=== PATIENT | female | born 1970 | race Caucasian/White ===

== ENCOUNTER 2016-06-22 11:53 | Emergency (ER) | payer OTHER | END 2016-06-22 12:23 | disposition left against medical advice (07) | LOC: UCEAST 11:53 | DX: H57.8 Other specified disorders of eye and adnexa (principal) ==

== ENCOUNTER 2016-11-28 18:27 | Emergency (ER) | payer OTHER | END 2016-11-28 22:06 | disposition left against medical advice (07) | LOC: UCEAST 18:27 | DX: R05 Cough (principal); Z53.21 Procedure and treatment not carried out due to patient leaving prior to being seen by health care provider ==

== ENCOUNTER 2018-03-13 06:28 | Emergency (ER) | payer OTHER ==
--- NOTE | 2018-03-13 06:39 | ED ---
Abdominal Pain/Female - HPI Summary HPI Summary: Pt. is a 47 y.o female who presents to the ER for left flank pain that started this a.m. Denies past medical hx. Pt. is constant and sharp in nature. Denies associated sxs of fever, vomiting, dysuria, hematuria, vaginal discharge or bleeding. 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 Pt. Symptoms are moderate in severity. No current modifying factors. - History of Current Complaint Chief Complaint: EDFlankPain Stated Complaint: FLANK PAIN Time Seen by Provider: 03/13/18 06:37 Hx Obtained From: Patient Hx Last Menstrual Period: 07/18/14 Pain Intensity: 5 Allergies/Adverse Reactions: Allergies Allergy/AdvReac Type Severity Reaction Status Date / Time No Known Allergies Allergy Verified 03/13/18 06:56 Home Medications: Home Medications Citalopram Hydrobromide [Citalopram HBr] 10 mg PO DAILY 03/13/18 [History Confirmed 03/13/18] PMH/Surg Hx/FS Hx/Imm Hx Previously Healthy: Yes Endocrine/Hematology History: Denies: Hx Diabetes - [facility] Cardiovascular History: Denies: Hx Hypertension, Hx Pacemaker/ICD GI History: Reports: Other GI Disorders - Possible acid reflux History: Denies: Hx Renal Disease Sensory History: Denies: Hx Hearing Aid Psychiatric History: Denies: Hx Panic Disorder - Cancer History Hx Chemotherapy: No Hx Radiation Therapy: No - Surgical History Surgery Procedure, Year, and Place: 2006 [facility] [place]; Infectious Disease History: No Infectious Disease History: Denies: Traveled Outside the [place] in Last 30 Days - Family History Known Family History: Positive: Non-Contributory - Social History Occupation: Employed Full-time Lives: With Family Alcohol Use: None Substance Use Type: Reports: None Smoking Status (MU): Former Smoker Review of Systems Constitutional: Negative Negative: Fever, Chills Cardiovascular: Negative Respiratory: Negative Positive: Abdominal Pain. Negative: Vomiting, Diarrhea, Nausea Positive: flank pain. Negative: burning, dysuria, discharge, frequency, hematuria Neurological: Negative All Other Systems Reviewed And Are Negative: Yes Physical Exam Triage Information Reviewed: Yes Vital Signs On Initial Exam: Initial Vitals Temp Pulse Resp BP Pulse Ox 99.3 F 73 22 132/69 100 03/13/18 06:30 03/13/18 06:30 03/13/18 06:30 03/13/18 06:30 03/13/18 06:30 Vital Signs Reviewed: Yes Appearance: Positive: Pain Distress - Pt. lying in bed onto her left side appears in pain but nontoxic. Skin: Positive: Warm, Dry Head/Face: Positive: Normal Head/Face Inspection Eyes: Positive: Normal, EOMI Neck: Positive: Supple Abdomen Description: Positive: Other: - Obese. Abd. is soft with pain to left lower and upper quadrants with guarding. No rigidity or rebound tenderness. Musculoskeletal: Positive: Normal, Strength/ROM Intact Neurological: Positive: Normal, Alert, Oriented to Person Place, Time Psychiatric: Positive: Affect/Mood Appropriate Diagnostics - Vital Signs Vital Signs Temp Pulse Resp BP Pulse Ox 03/13/18 06:30 99.3 F 73 22 132/69 100 - Laboratory Result Diagrams: 03/13/18 07:16 03/13/18 07:16 Lab Statement: Any lab studies that have been ordered have been reviewed, and results considered in the medical decision making process. Abdominal Pain Fem Course/Dx - Course Course Of Treatment: Pt. presenting for acute onset of left-sided flank pain. She is afebrile with stable vital signs. Suspect urolithiasis, diverticulitis. Patient started on IV fluids, Toradol, morphine and Zofran. We will obtain blood work and CT scan. CBC shows a mild leukocytosis of 12.2. H&H today are low at 7.8 and 26. H&H about a year ago was 10.2 and 33. CMP is unremarkable. Urinalysis shows RBCs without signs of infection. IMPRESSION: 1. CT findings are consistent with mild left-sided hydronephrosis without identification. of a renal calculus. This appearance could be compatible with recent passage of a kidney. stone. 2. Distal colonic diverticulosis without definite focal inflammatory changes. characteristic of acute diverticulitis. 3. At the left adnexa there is a 2.8 cm hypoattenuating structure that is most likely a. dominant follicle if this woman is still undergoing menstrual cycles. If the patient is. experiencing gynecologic symptoms, superior characterization could be made with. ultrasound. CT read per radiology: IMPRESSION: 1. CT findings are consistent with mild left-sided hydronephrosis without identification. of a renal calculus. This appearance could be compatible with recent passage of a kidney. stone. 2. Distal colonic diverticulosis without definite focal inflammatory changes. characteristic of acute diverticulitis. 3. At the left adnexa there is a 2.8 cm hypoattenuating structure that is most likely a. dominant follicle if this woman is still undergoing menstrual cycles. If the patient is. experiencing gynecologic symptoms, superior characterization could be made with. ultrasound. Reexamination patient's pain has greatly improved. Suspect results with patient. Suspect she passed a stone based discussed hemoglobin and hematocrit with patient. She states that she was told her H and H was low last year and was suppose to have additional testing but states she never followed up. Pt. denies sxs of CP, SOB, lightheadness, dizziness. Based on CBC suspect microcytic anemia likely iron deficiency. Case was discussed with Dr. Trotter who does not recommend transfusion given patient is asymptomatic. She recommended started patient on iron supplement and stool softener. Advised patient she will need to call her family doctor Thursday for close follow-up appointment for further evaluation and repeat blood work. Rx for iron and and a few days of pain medication was given. EARLY CHILDHOOD TEACHER ASSISTANT was reviewed and no red flags noted. Advised patient to increase fluids. Incidental findings on CT scan were discussed. Advised to return to the ER for increased pain, fever, vomiting , lightheadedness, dizziness, chest pain, shortness of breath. Patient understands and agrees with plan. - Diagnoses Differential Diagnosis: Positive: Appendicitis, Bowel Obstruction, Constipation , Diverticulitis, Ectopic , Pancreatitis, Renal Colic, Urinary Tract Infection Provider Diagnoses: Anemia, Hydronephrosis Discharge - Sign-Out/Discharge Documenting (check all that apply): Patient Departure - Discharge Plan Condition: Improved Disposition: HOME Prescriptions: Ferrous Sulfate TAB* 325 mg PO DAILY #30 tab Hydrocodone/Acetaminophen [Hydrocodone-Acetamin 5-325 mg] 1 each PO Q6H #8 tablet MDD 4 tablets Patient Education Materials: Kidney Stones (ED), Iron Rich Diet (ED), Anemia ( ED) Referrals: Edilberto Yang MD [Primary Care Provider] - Additional Instructions: Call PCP on Thursday to schedule a close follow up appointment for repeat blood work Take iron supplement as directed Recommend taking an over the counter stool softener such as Colace Increase fluids Return to ER for chest pain, shortness of breath, lightheadness, dizziness, increased pain, fever, or if concerned - Billing Disposition and Condition Condition: IMPROVED Disposition: Home
--- OUTSIDE RECORDS SUMMARY | 2018-03-13 06:39 | XMS REPORT ---
:1970 External Reference #:[id number] Author Organization [facility] Address [address] [place] [address] Phone [phone] Care Team Providers Name Role Phone Edilberto Yang MD Care Team Information Chocolate Refining Roller Unavailable Edilberto Yang MD Primary Care Physician Unavailable Payers Type Date Identification Numbers Payment Provider Subscriber Health Maintenance Policy Number: [employer] Leah Fine Organization (HMO) [id number] Group Number: [id number] [id number] PayID: [id number] [place] [address] Problems Date Description Provider Status Onset: 07/10/2016 Iron deficiency anemia Edilberto Yang M.D. Active Onset: 09/04/2014 Cough Edilberto Yang M.D. Active Onset: 11/12/2011 Depressive disorder Edilberto Yang M.D. 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 [employer] Cigarette Use Nonsmoker ETOH Use Rare Smoking Patient has never smoked Daily Caffeine Does not consume caffeine Allergies, Adverse Reactions, Alerts Date Description Reaction Status Severity Comments 02/27/2010 NKDA active Medications Medication Date Status Form Strength Qnty SIG Indications Ordering Provider Citalopram Active Tablets 10mg 90tabs 1 by F34.1 Lora Hydrobromide 012 mouth 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 015 - every day Lisandro Yang [address] 20mg 30caps 1 po qd 786.50 Ofe 013 - Christelle, Afnp-C 014 Citalopram Hx Tablets 10mg 30tabs 1 po qd Ofe Hydrobromide 011 - Christelle, Afnp-C 012 Immunizations CPT Code Status Date Vaccine Lot # [id number] Given 03/14/2016 Influenza Vac, Quadrivalent, Slit Virus, Im [id number] Given 03/14/2015 Influenza Vac, Quadrivalent, Slit Virus, Im [id number] Given 02/27/2010 Tdap Tetanus, W Pertussis [id number] Vital Signs Date Vital Result Comment 03/10/2018 BP Systolic 112 mmHg BP Diastolic 68 mmHg Heart Rate 88 /min Body Temperature 98.1 F Respiratory Rate 16 /min Height 63.75 inches 5'3.75" Weight 200.00 lb BMI (Body Mass Index) 34.6 kg/m2 06/10/2017 BP Systolic 120 mmHg BP Diastolic 80 mmHg Heart Rate 88 /min Body Temperature 96.1 F Respiratory Rate 16 /min Height 63.75 inches 5'3.75" Weight 228.00 lb BMI (Body Mass Index) 39.4 kg/m2 07/10/2016 BP Systolic 102 mmHg BP Diastolic 72 mmHg Heart Rate 92 /min Body Temperature 99.6 F Respiratory Rate 16 /min Height 63.75 inches 5'3.75" Weight 215.00 lb BMI (Body Mass Index) 37.2 kg/m2 Right Visual Acuity Distance 20/20 corrected Left Visual Acuity Distance 20/20 corrected 03/14/2016 BP Systolic 110 mmHg BP Diastolic 70 mmHg Heart Rate 88 /min Body Temperature 98.0 F Respiratory Rate 18 /min Weight 215.00 lb 03/14/2015 BP Systolic 102 mmHg BP Diastolic 74 mmHg Heart Rate 90 /min Body Temperature 98.8 F Height 64.25 inches 5'4.25" Weight 219.38 lb BMI (Body Mass Index) 37.4 kg/m2 09/04/2014 BP Systolic 128 mmHg BP Diastolic 70 mmHg Heart Rate 88 /min Body Temperature 99.4 F Respiratory Rate 16 /min O2 % BldC Oximetry 98 % Height 64.25 inches 5'4.25" Weight 223.00 lb BMI (Body Mass Index) 38.0 kg/m2 01/18/2014 BP Systolic 106 mmHg BP Diastolic 62 mmHg Heart Rate 112 /min Body Temperature 98.5 F Respiratory Rate 16 /min Height 64.25 inches 5'4.25" Weight 230.38 lb BMI (Body Mass Index) 39.2 kg/m2 10/08/2012 BP Systolic 122 mmHg BP Diastolic 80 mmHg Heart Rate 72 /min Body Temperature 98.1 F Respiratory Rate 18 /min Height 64.25 inches 5'4.25" Weight 220.00 lb BMI (Body Mass Index) 37.5 kg/m2 11/12/2011 BP Systolic 120 mmHg BP Diastolic 74 mmHg Heart Rate 72 /min Body Temperature 98.1 F Respiratory Rate 12 /min Height 64.25 inches 5'4.25" Weight 210.00 lb BMI (Body Mass Index) 35.8 kg/m2 Right Visual Acuity Distance 20/25 corrected Left Visual Acuity Distance 20/20 corrected 10/09/2011 BP Systolic 100 mmHg BP Diastolic 64 mmHg Heart Rate 60 /min Body Temperature 98.5 F Height 64.25 inches 5'4.25" Weight 207.00 lb BMI (Body Mass Index) 35.3 kg/m2 03/13/2011 BP Systolic 110 mmHg BP Diastolic 70 mmHg Heart Rate 72 /min Height 64.25 inches 5'4.25" Weight 208.00 lb BMI (Body Mass Index) 35.4 kg/m2 07/19/2010 BP Systolic 102 mmHg BP Diastolic 70 mmHg Heart Rate 84 /min Body Temperature 98.6 F Height 64.25 inches 5'4.25" Weight 221.00 lb BMI (Body Mass Index) 37.6 kg/m2 02/27/2010 BP Systolic 108 mmHg BP Diastolic 70 mmHg Heart Rate 64 /min Body Temperature 97.8 F Respiratory Rate 16 /min Height 64.25 inches 5'4.25" Weight 211.00 lb BMI (Body Mass Index) 35.9 kg/m2 Results Test Date Test Result H/L Range Note Laboratory test finding 07/10/2016 Cytology SEE RESULT BELOW 1 Laboratory test finding 07/10/2016 Cytology SEE RESULT BELOW 2 Complete Blood Count 05/20/2016 WBC 5.9 x10^3/UL 3.6-9.6 RBC 4.15 x10^6/UL 3.90-5.70 HGB 10.7 g/dL Low 12.1-17.2 3 HCT 33 % Low 36-50 MCV 79.0 fL Low 82.2-97.4 MCH 25.7 pg Low 27.6-33.3 MCHC 32.4 g/dL Low 33.0-35.5 RDW 15.0 % High 11.6-13.7 PLT 379 x10^3/UL 150-400 Gran # 4.0 x10^3/UL 1.5-7.2 Lymph# 1.6 x10^3/UL 0.7-4.9 Hockley# 0.3 x10^3/UL 0.1-0.9 Gran % 66.0 % 42.2-75.2 Lymph % 27.7 % 20.5-51.1 Hockley% 6.3 % 1.7-9.3 Lipid Profile 05/20/2016 Cholesterol 161 mg/dL 120-200 Triglycerides 41 mg/dL 30-200 HDL Cholesterol 65 mg/dL 30-85 LDL (Calculated) 88 CALC 0-129 VLDL Cholesterol 8 mg/dL 0-50 HDL Risk Factor 2.5 CALC 0.0-4.4 Comprehensive Metabolic Prof 05/20/2016 Sodium 137 mEq/L 134-149 Potassium 4.5 mEq/L 3.6-5.5 Chloride 105 mEq/L 94-112 Carbon Dioxide 30 mEq/L 21-32 Glucose 109 mg/dL High 70-105 4 BUN 15 mg/dL 6-26 Creatinine 0.8 mg/dL 0.6-1.4 BUN/Creat Ratio 18.8 CALC 8.0-36.0 Calcium 8.9 mg/dL 8.6-10.2 Total Protein 8.0 g/dL 6.4-8.3 Albumin 4.3 g/dL 3.8-5.5 Globulin 3.7 g/dL 2.0-4.8 A/G Ratio 1.2 CALC 0.6-2.3 Alk. Phosphatase 57 U/L 30-110 Alt (SGPT) 10 U/L 7-35 Ast (Sgot) 15 U/L 5-34 Total Bilirubin 0.3 mg/dL 0.2-1.3 GFR Non- >60 ml/min/1.73m^ >=60 GFR >60 ml/min/1.73m^ >=60 Laboratory test 05/20/2016 Hemoglobin A1c (Fma) 5.9 % High 4.1-5.7 finding Laboratory test 10/08/2012 D Dimer Quantitative 518 ng/mL High 0.0-400 5 finding Laboratory test 10/08/2012 Troponin < 0.06 ng/ml Low 0.00-2.30 finding Laboratory test 11/26/2011 Thin Prep SEE NOTE 6 finding W/HPV(Lsil/ESTHER/Asc) Laboratory test 11/12/2011 Cytology 7 finding - <SEE NOTE> Ua - Non Micro (Fma) 11/12/2011 Appearance clear Color yellow Glucose, Urine (Fma/CMC/CTX) - Bilirubin - Ketones - SP Grav 1.025 Blood - PH 5.0 Protein - Urobil 0.2 Nitrite - Leukocytes (Fma/CMC/Centrex) - Laboratory test finding 02/27/2010 Cytology <SEE NOTE> 8 Laboratory test finding 02/27/2010 TSH 3.34 mIU/L 0.50-6.00 Troponin < 0.06 ng/ml Low 0.00-2.30 9 Comprehensive Metabolic Prof 02/27/2010 Albumin 4.3 g/dL 3.8-5.5 Alk. Phos. 56 U/L 30-110 Alt (SGPT) 9 U/L 7-35 Ast (Sgot) 14 U/L 5-34 BUN 16 mg/dL 6-26 Calcium 8.6 mg/dL 8.6-10.2 Chloride 103 mEq/L 94-112 Creatinine 0.8 mg/dL 0.6-1.4 Carbon Dioxide 25 mEq/L 21-32 Glucose 98 mg/dL 70-105 Sodium 142 mEq/L 134-149 Total Bilirubin 0.3 mg/dL 0.2-1.3 Total Protein 7.4 g/dL 6.3-8.1 Potassium 4.3 mEq/L 3.6-5.5 Globulin 3.1 g/dL 2.0-4.8 A/G Ratio 1.4 Calc 0.6-2.2 BUN/Creat Ratio 20.7 Calc 8.0-36.0 Lipid Profile 02/27/2010 Cholesterol 178 mg/dL 120-200 HDL 57 mg/dL 30-85 Triglycerides 53 mg/dL 30-200 HDL Risk Factor 3.1 CALC Low 4.2-7.0 LDL (Calculated) 111 CALC 0-129 VLDL (Calculated) 11 mg/dL 0-50 Ua - Non Micro (Fma) 02/27/2010 Appearance CLEAR Color YELLOW Glucose, Urine (Fma/CMC/CTX) NEG Bilirubin NEG Ketones NEG SP Grav 1.025 Blood LARGE-MENSES PH 5.5 Protein NEG Urobil 0.2 Nitrite NEG Leukocytes (a/CMC/Centrex) NEG CBC ([facility]) 02/27/2010 WBC 5.7 3.6-9.6 RBC 4.36 3.90-5.70 Hemoglobin (Fma/CMC/CTX) 13.2 g/dL 12.1 - 17.2 Hematocrit (Fma/CMC/CTX) 40.5 % 36.1 - 50.3 Platelets 340 10^3/ul 150-400 Lymph% 28.4 20.5-51.1 Mixed% 8.9 Neutrophils % 62.7 Mean Corpuscular Vol 93 82.2-97.4 Mean Corpuscular Hemoglobin 30.2 27.6-33.3 Mean Corpuscular Hemo Concen 32.5 Low 33.0-36.0 RDW 11.8 11.6-13.7 Mean Platelet Volume 7.4 7.4-10.4 1 SEE RESULT BELOW Name: LEAH FINE : [address]: Edilberto Yang MD Acct: [id number] Unit: [id number] AGE: 45 Location: [facility] Re07/10/16 SEX: F Status: REG REF SPEC: [id number] LAMINE: 07/10/[address] [facility] [address]: Edilberto Yang MD REQ: [id number] RECD: 07/11/16 STATUS: SOUT _ ORDERED: IMAGE ANALYSIS COMMENTS: [id number] FINAL DIAGNOSIS Negative for Intraepithelial lesion or Malignancy A. Ectocervical/Endocervical Specimen Adequacy: Satisfactory of evaluation Transformation zone component not identified Patient Information: HPV: Thin Layer Pap Test w/reflex to high risk HPV RNA testing when ASCUS Actual Specimen Date: 07/10/16 LMP If Unknown: unknown Spec Date if unknown: 2011 ?: N Post Menopausal?: N Hysterectomy?: N Signed (signature on file) DEYVI Reese(ASCP) 07/15 1400 This Pap test was evaluated with the assistance of the CellmemorePrep Test Imaging System. Due to cytologic findings at the assistant head cashier microscope, comprehensive manual rescreening by a Floor Coverer Apprentice may be required. The Pap Smear is a screening test designed to aid in the detection of premalignant and malignant conditions of the uterine cervix. It is not a diagnostic procedure and should not be used as the sole means of detecting cervical cancer. Both false- positive and false- negative reports do occur. Depending on your risk status, a Pap smear should be obtained and evaluated every 1-3 years. END OF REPORT * ML=Testing performed at Main Lab DEPARTMENT OF PATHOLOGY, [address] [place] [address] Greg Giang M.D. Director [facility] # [id number] 2 SEE RESULT BELOW Name: LEAH FINE : [address]: Edilberto Yang MD Acct: [id number] Unit: [id number] AGE: 45 Location: [facility] Re07/10/16 SEX: F Status: REG REF SPEC: [id number] LAMINE: 07/10/[address] [facility] [address]: Edilberto Yang MD REQ: [id number] RECD: 07/11/16 STATUS: SOUT _ ORDERED: IMAGE ANALYSIS, HPV/Thin Prep COMMENTS: [id number] THIS IS A CORRECTED REPORT 07/23/16 Corrected Report FINAL DIAGNOSIS Negative for Intraepithelial lesion or Malignancy COMMENTS: Add-on HPV testing. A. Ectocervical/Endocervical Specimen Adequacy: Satisfactory of evaluation Transformation zone component not identified Patient Information: HPV: Thin Layer Pap Test w/reflex to high risk HPV RNA testing when ASCUS Actual Specimen Date: 07/10/16 LMP If Unknown: unknown Spec Date if unknown: 2011 ?: N Post Menopausal?: N Hysterectomy?: N Date Time Test Result Flag (u) Normal Range 07/10/16 0928 HPV RNA Negative Negative The high-risk HPV types detected by the assay include: 16, 18, 31, 33, 35, 39, 45, 51, 52, 56, 58, 59, 66, and 68. Signed DEYVI Gonzlaez ([facility]) 07/23 1020 This Pap test was evaluated with the assistance of the CellmemorePrep Test Imaging System. Due to cytologic findings at the assistant head cashier microscope, comprehensive manual rescreening by a Floor Coverer Apprentice may be required. The Pap Smear is a screening test designed to aid in the detection of premalignant and malignant conditions of the uterine cervix. It is not a diagnostic procedure and should not be used as the sole means of detecting cervical cancer. Both false- positive and false- negative reports do occur. Depending on your risk status, a Pap smear should be obtained and evaluated every 1-3 years. END OF REPORT RUN DATE: 07/23/16 [facility] LAB LIVE PAGE 1 Patient: LEAH FINE [id number] (Continued) * ML=Testing performed at Main Lab DEPARTMENT OF PATHOLOGY, [address] [place] [address] Greg Giang M.D. Director [facility] # [id number] 3 RESULTS VERIFIED BY REPEAT ANALYSIS 4 RESULTS VERIFIED BY REPEAT ANALYSIS 5 RECHECKED 6 [facility] DEPARTMENT OF PATHOLOGY or Extension 7868 CREDIT ANALYST CYTOLOGY REPORT PATIENT: LEAH FINE : 1970 AGE: 41 Y SEX: F ACCT: [id number] PROCEDURE DATE: 11/26/2011 DATE RECEIVED: 11/28/2011 REQUESTING PHYSICIAN: OFE BOURGEOIS NP LOCATION: [facility] Case No. [id number] PATIENT DATA: [id number] SPECIMEN SUBMITTED: * * (HPVII) THIN PREP W/HPV (LSIL/ASC/ESTHER) * * ENDOCERVICAL RELEVANT HISTORY: LMP: 11/01/2011 Comment: PREV. PAP:11/12/11 WNL,NO TRANSFORMATION ZONE SEEN SPECIMEN ADEQUACY SATISFACTORY FOR EVALUATION, ENDOCERVICAL TRANSFORMATION ZONE COMPONENT PRESENT GENERAL CATEGORIZATION NEGATIVE FOR INTRAEPITHELIAL LESIONS OR MALIGNANCY COMMENTS Thin Prep Pap tests are examined with an FDA approved location-guidance system. ADDITIONAL COPIES SENT TO: Screened/Rescreened Electronically Signed Sign Out Date/Time: by: by: MARGARITO DYLAN LEHMAN, 12/02/2011 12:26 CT(ASCP) Note: The Pap smear is a screening test designed to aid in the detection of premalignant and malignant conditions of the uterine cervix. It is not a diagnostic procedure and should not be used as the sole means of detecting cervical cancer. Both false-positive and false-negative reports do occur. 00 UA Pap Smear performed at [facility] [place]: [place], [address] [place] [address] 01 certified medical transcriptionist [facility] [place] Dir: Fabio Osei MD, [address] [facility] [address] 02 [facility] [place] Dir: Truong Jones MD, [address] [place] [phone] For inquiries regarding HPV test results, the physician may contact [facility]: [phone] "" 7 --- RUN DATE: 11/13/11 [facility] NMI LIVE PAGE 1 RUN TIME: 1134 Specimen Inquiry RUN USER: INTERFACE -- Name: LEAH IFNE Status: REG REF Re11/12/11 Age/Sex: 41/F Unit#: [id number] Location: [facility] : [birth year] -- Specimen: [id number] SOUT Spec Date:11/12/[address]: Edilberto gallegos MD Spec Type: CYTOLOGY Received:11/13/11 Copies to: SOURCE ECTOCERVICAL/ENDOCERVICAL Thin Prep with Reflex HPV Test PATIENT INFORMATION ACTUAL COLLECTION DATE: 11/12/11 ? No POST MENOPAUSAL? No HYSTERECTOMY? No PREVIOUS ABNORMAL PAP SMEARS No LAST MENSTRUAL PERIOD: 11/01/11 PATIENT HISTORY: Prior 02/2010 ADEQUACY OF SPECIMEN Satisfactory for evaluation * Transformation zone component not identified * DIAGNOSIS NEGATIVE FOR INTRAEPITHELIAL LESION OR MALIGNANCY * This Pap test was evaluated with the assistance of the ThinPrep Pap Test Imaging System. The Pap Smear is a screening test designed to aid in the detection of premalign ant and malignant conditions of the uterine cervix. It is not a diagnostic procedure a nd should not be used as the sole means of detecting cervical cancer. Both false- positiv e and false-negative reports do occur. Depending on your risk status, a Pap smear bibi uld be obtained and evaluated every one to three years. Final Interpretation electronically signed by: Troy PATTERSON([facility]) 11/13/11 113 3 -- -- DEPARTMENT OF PATHOLOGY, [address] [place] [address] [facility] Permit #[id number] Lisandro Farmer M.D. Roll Coating Machine Operator Dir [email or web address] -- 8 --- RUN DATE: 03/01/10 [facility] NMI LIVE PAGE 1 RUN TIME: 1545 Specimen Inquiry RUN USER: INTERFACE -- Name: LEAH FINE Status: REG REF Re02/27/10 Age/Sex: 39/F Unit#: [id number] Location: [facility] : [birth year] -- Specimen: [id number] SOUT Spec Date: 02/27/[address]: Edilberto epps MD Spec Type: CYTOLOGY Received: 03/01/10-1020 Copies to: SOURCE ECTOCERVICAL/ENDOCERVICAL Thin Prep with Reflex HPV Test PATIENT INFORMATION ACTUAL COLLECTION DATE: 02/27/10 ? No POST MENOPAUSAL? No HYSTERECTOMY? No PREVIOUS ABNORMAL PAP SMEARS No LAST MENSTRUAL PERIOD: 02/22/10 DATE OF PRIOR SPECIMEN: 12/05/08 ADEQUACY OF SPECIMEN Satisfactory for evaluation * Transformation zone component identified * DIAGNOSIS NEGATIVE FOR INTRAEPITHELIAL LESION OR MALIGNANCY * This Pap test was evaluated with the assistance of the ThinPrep Pap Test Imaging System. The Pap Smear is a screening test designed to aid in the detection of premalign ant and malignant conditions of the uterine cervix. It is not a diagnostic procedure a nd should not be used as the sole means of detecting cervical cancer. Both false- positiv e and false-negative reports do occur. Depending on your risk status, a Pap smear bibi uld be obtained and evaluated every one to three years. Initial evaluation performed by Travon RODRÍGUEZ CT(ASCP) 03/01/10 Final Interpretation electronically signed by: Travon RODRÍGUEZ CT(ASCP) 03/01/10 1545 -- DEPARTMENT OF PATHOLOGY, [address] [place] [address] [facility] Permit #[id number] Greg Giang M.D. Director Nela Pina M.D. Roll Coating Machine Operator Dir lucien -- 9 RESULT BELL'D Procedures Date CPT Code Description Status 07/23/2016 Mammogram Completed 09/04/2014 51611 Pulse Oximetry Completed 10/08/2012 14326 Electrocardiogram Complete Completed 03/13/2011 Mammogram Completed 03/04/2010 Mammogram Completed 02/27/2010 24948 Electrocardiogram Complete Completed Encounters Type Date Location Provider CPT E/M Dx Office Visit 06/10/2017 4:30p [facility] Office REGULO Navarro 03499 F34.1 Office Visit 07/10/2016 1:30p Main Office Edilberto Yang M.D. 85915 Z00.01 D50.9 Z12.4 Z12.39 Office Visit 03/14/2016 3:45p [facility] Office Lora SneedbhartREGULO 78112 F34.1 G47.00 Z91.411 Z12.39 Z23 Office Visit 03/14/2015 3:45p [facility] Office Ginny Devries-C 78708 F33.41 Z23 Office Visit 09/04/2014 9:10a [facility] Office Edilberto Yang M.D. 76377 786.2 Office Visit 01/18/2014 11:30a [facility] Office Ofe Bourgeois Afnp-C 70266 311 Office Visit 11/26/2011 1:00p [facility] Office Ofe Bourgeois Afnp-C 16753 V76.2 Office Visit 11/12/2011 8:00a [facility] Office Edilberto Yang M.D. 48812 V70.0 V76.2 311 782.9 V76.41 Office Visit 10/09/2011 9:00a [facility] Office Ofe Bourgeois Afnp-C 48923 311 Office Visit 03/13/2011 9:15a [facility] Office Ofe Bourgeois Afnp-C 46014 311 Office Visit 07/19/2010 9:30a [facility] Office Ofe Bourgeois Afnp-C 05645 311 Office Visit 02/27/2010 9:00a [facility] Office Edilberto Yang M.D. 03038 V70.0 V76.2 V76.10 786.50 V18.0 V06.5 v06.5 Plan of Care Future Appointment(s):03/12/2018 11:15 am - REGULO Navarro at [facility] [id number]/10/2018 - REGULO NavarroZ30.09 Encounter for oth general coun and advice on contraceptionAllComments:~B_~U_Medication Management~b_~u_ Patient Understands medications he 's taking? Yes No Are there Barriers to Adherence? Yes No Has the patient been asked about herbal supplements and therapies, and OTC meds? Yes No As always, we strongly encourage a healthy diet and makingphysical activity a part of your every day life. If you have questions about how or where to start, please contact the office.
--- OUTSIDE RECORDS SUMMARY | 2018-03-13 06:39 | XMS REPORT ---
:1970 External Reference #:[id number] Author Organization [facility] Address [address] [place] [address] Phone [phone] Care Team Providers Name Role Phone Edilberto Yang MD Care Team Information Installer Unavailable Edilberto Yang MD Primary Care Physician Unavailable Payers Type Date Identification Numbers Payment Provider Subscriber Health Maintenance Policy Number: [employer] Leah Fine Organization (O) [id number] Group Number: [id number] [address] PayID: [id number] [place] [address] Problems Date Description Provider Status Onset: 07/10/2016 [...] Description Comments Marital Status 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 [employer] Cigarette Use Nonsmoker ETOH Use Rare Smoking Patient has never smoked Daily Caffeine Does not consume caffeine Allergies, Adverse Reactions, Alerts Date Description Reaction Status Severity Comments 02/27/2010 NKDA active Medications Medication Date Status Form Strength Qnty SIG Indications Ordering Provider Depo-Provera 03/12 Active Suspension 150mg/ml 1ml 150mg Z30.09 Lora intramuscular Kodak, every 3 SYSTEM SUPPORT ADMINISTRATOR months Citalopram 10/08 Active Tablets 10mg 90tab 1 by mouth F34.1 Lora Hydrobromide /2011 s every day BOB CandelarioP Z91.411 Cefuroxime Axetil Hx Tablets 500mg 14tabs 1 by mouth 786.2 Edilberto A. 015 - twice a day Lisandro Yang [...] CPT Code Status Date Vaccine Lot # [id number] Given 03/14/2016 Influenza Vac, Quadrivalent, Slit Virus, Im [id number] Given 03/14/2015 Influenza Vac, Quadrivalent, Slit Virus, Im [id number] Given 02/27/2010 Tdap Tetanus, W Pertussis [id number] Vital Signs Date Vital Result Comment 03/12/2018 BP Systolic 118 mmHg BP Diastolic 84 mmHg Heart Rate 68 /min Body Temperature 98.4 F Respiratory Rate 16 /min Height 63.75 inches 5'3.75" Weight 200.00 lb BMI (Body Mass Index) 34.6 kg/m2 03/10/2018 BP Systolic 112 mmHg BP Diastolic [...] Test Result H/L Range Note Laboratory test 03/12/2018 Cytology Thinprep <pending> finding w/rfx([facility] [place]) Laboratory test 07/10/2016 Cytology SEE RESULT BELOW 1 finding Laboratory test 07/10/2016 Cytology SEE RESULT BELOW 2 finding Complete Blood Count 05/20/2016 WBC 5.9 x10^3/UL 3.6-9.6 RBC 4.15 x10^6/UL 3.90-5.70 HGB 10.7 g/dL Low 12.1-17.2 3 HCT 33 % Low 36-50 MCV 79.0 fL Low 82.2-97.4 MCH 25.7 pg Low 27.6-33.3 MCHC 32.4 g/dL Low 33.0-35.5 RDW 15.0 % High 11.6-13.7 PLT 379 x10^3/UL 150-400 Gran # 4.0 x10^3/UL 1.5-7.2 Lymph# 1.6 x10^3/UL 0.7-4.9 [place]# 0.3 x10^3/UL 0.1-0.9 Gran % 66.0 % 42.2-75.2 Lymph % 27.7 % 20.5-51.1 [place]% 6.3 % 1.7-9.3 Lipid Profile 05/20/2016 Cholesterol [...] 11 mg/dL 0-50 Ua - Non Micro (a) 02/27/2010 Appearance CLEAR Color YELLOW Glucose, Urine (Fma/CMC/CTX) NEG Bilirubin NEG Ketones NEG SP Grav 1.025 Blood LARGE-MENSES PH 5.5 Protein NEG Urobil 0.2 Nitrite NEG Leukocytes (Fma/CMC/Centrex) NEG CBC ([facility]) 02/27/2010 WBC 5.7 3.6-9.6 RBC 4.36 3.90-5.70 [...] [address]: Edilberto Yang MD Acct: [id number] Unit: [id number] AGE: 45 Location: [facility] Re07/10/16 SEX: F Status: REG REF SPEC: [id number] LAMINE: 07/10/[address] [facility] [address]: Edilberto Yang MD REQ: [id number] RECD: 07/11/16 STATUS: SOUT _ ORDERED: IMAGE ANALYSIS COMMENTS: [id number] FINAL DIAGNOSIS Negative for Intraepithelial lesion or [...] was evaluated with the assistance of the [employer]ale Games[employer] Test Imaging System. Due to cytologic findings at the section chief microscope, comprehensive manual rescreening by a Radiation Technician may be required. The Pap Smear is [...] performed at Main Lab DEPARTMENT OF PATHOLOGY, [address] [place] [address] Greg Giang M.D. Director [facility] # [id number] 2 SEE RESULT BELOW Name: LEAH FINE : [address]: Edilberto Yang MD Acct: [id number] Unit: [id number] AGE: 45 Location: [facility] Re07/10/16 SEX: F Status: REG REF SPEC: [id number] LAMINE: 07/10/[address]: Edilberto Yang MD REQ: [id number] RECD: 07/11/16 STATUS: SOUT _ ORDERED: IMAGE ANALYSIS, HPV/Thin Prep COMMENTS: [id number] THIS IS A CORRECTED REPORT 07/23/16-34 Corrected Report FINAL DIAGNOSIS Negative for Intraepithelial [...] 58, 59, 66, and 68. Signed DEYVI Gonzalez (ASCP) 07/23 1020 This Pap test was evaluated with the assistance of the ThinPrep Test Imaging System. Due to cytologic findings at the section chief microscope, comprehensive manual rescreening by a Radiation Technician may be required. The Pap Smear is [...] years. END OF REPORT RUN DATE: 07/23/16 [facility] LAB LIVE PAGE 1 Patient: LEAH FINE [id number] (Continued) * ML=Testing performed at Main Lab DEPARTMENT OF PATHOLOGY, [address] [place] [address] Greg Giang M.D. Director [facility] # [id number] 3 RESULTS VERIFIED BY REPEAT ANALYSIS 4 RESULTS VERIFIED BY REPEAT ANALYSIS 5 RECHECKED 6 [employer] DEPARTMENT OF PATHOLOGY or Extension 3[address] NAIL POLISH BRUSH MACHINE FEEDER CYTOLOGY REPORT PATIENT: LEAH FINE : 1970 AGE: 41 Y SEX: F ACCT: [id number] PROCEDURE DATE: 11/26/2011 DATE RECEIVED: 11/28/2011 REQUESTING PHYSICIAN: OFE VERNON NP LOCATION: [facility] Case No. [id number] PATIENT DATA: [id number] SPECIMEN SUBMITTED: * * (HPVII) THIN PREP [...] Signed Sign Out Date/Time: by: by: MARGARITO LEHMAN, 12/02/2011 12:26 CT(ASCP) Note: The Pap smear is a screening test designed to aid in the detection of premalignant and malignant conditions of the uterine cervix. It is not a diagnostic procedure and should not be used as the sole means of detecting cervical cancer. Both false-positive and false-negative reports do occur. 00 UA Pap Smear performed at [address] Dir: Liz Lyle MD, [address] [facility] [address] 01 orchestra teacher [place] Dir: Fabio Osei MD, [address] [facility] [address] 02 [facility] [place] Dir: Truong Jones MD, [address] [facility] [address] For inquiries regarding HPV test results, the physician may contact [facility] [place]: [phone] "" 7 --- RUN DATE: 11/13/11 [facility] NMI LIVE PAGE 1 RUN TIME: 1134 Specimen Inquiry RUN USER: INTERFACE -- Name: LEAH FINE Status: REG REF Re11/12/11 Age/Sex: 41/F Unit#: [id number] Location: [facility] : [birth year] -- Specimen: [id number] SOUT Spec Date:11/12/[address]: Edilberto gallegos MD Spec Type: CYTOLOGY [...] was evaluated with the assistance of the Telltale GamesPrep Pap Test Imaging System. The Pap Smear [...] years. Final Interpretation electronically signed by: Troy PATTERSON([facility]) 11/13/11 113 3 -- -- DEPARTMENT OF PATHOLOGY, [address] [place] [address] [facility] Permit #[id number] Greg Giang M.D. Director Nela Pina M.D. Winch Driver Dir lucien -- 8 --- RUN DATE: 03/01/10 [facility] NMI LIVE PAGE 1 RUN TIME: 1545 Specimen Inquiry RUN USER: INTERFACE -- Name: LEAH FINE Law Status: REG REF Re02/27/10 Age/Sex: 39/F Unit#: [id number] Location: [facility] : [birth year] -- Specimen: [id number] SOUT Spec Date: 02/27/[address]: Edilberto epps MD Spec Type: CYTOLOGY [...] was evaluated with the assistance of the Tell[employer] GamesPrep Pap Test Imaging System. The Pap Smear [...] three years. Initial evaluation performed by Travon RODRÍGUEZ([facility]) 03/01/10 Final Interpretation electronically signed by: Travon RODRÍGUEZ([facility]) 03/01/10 1545 -- DEPARTMENT OF PATHOLOGY, [address] [place] [address] [facility] Permit #[id number] Lisandro Farmer M.D. Winch Driver Dir lucien -- 9 RESULT BELL'D Procedures Date CPT Code Description Status 03/12/2018 Mammogram Completed 07/23/2016 Mammogram Completed 09/04/2014 74304 Pulse Oximetry Completed 10/08/2012 57018 Electrocardiogram Complete Completed 03/13/2011 Mammogram Completed 03/04/2010 Mammogram Completed 02/27/2010 30507 Electrocardiogram Complete Completed Encounters Type Date Location Provider CPT E/M Dx Office Visit 03/10/2018 11:15a [facility] Office Lora Candelario, SYSTEM SUPPORT ADMINISTRATOR 61841 Z30.09 Office Visit 06/10/2017 4:30p [facility] Office Lora CandelarioBOBP 02852 F34.1 Office Visit 07/10/2016 1:30p [facility] Office Edilberto Yang M.D. 54561 Z00.01 D50.9 Z12.4 Z12.39 Office Visit 03/14/2016 3:45p [facility] Office Lora CandelarioREGULO 70514 F34.1 G47.00 Z91.411 Z12.39 Z23 Office Visit 03/14/2015 3:45p [facility] Office Ginny Devries-C 44547 F33.41 Z23 Office Visit 09/04/2014 9:10a [facility] Office Edilberto Yang M.D. 94426 786.2 Office Visit 01/18/2014 11:30a [facility] Office Ginny Devries-C 33107 311 Office Visit 11/26/2011 1:00p [facility] Office Ginny Devries-C 77830 V76.2 Office Visit 11/12/2011 8:00a [facility] Office Edilberto Yang M.D. 30427 V70.0 V76.2 311 782.9 V76.41 Office Visit 10/09/2011 9:00a [facility] Office Ginny Devries-C 85359 311 Office Visit 03/13/2011 9:15a [facility] Office Ginny Devries-C 21650 311 Office Visit 07/19/2010 9:30a [facility] Office Ginny Devries-C 62430 311 Office Visit 02/27/2010 9:00a [facility] Office Edilberto Yang M.D. 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 [...]
[2018-03-13] MEDS ORDERED: Morphine VIAL* 4 MG/ML VIAL (1 ml vial) IV ONE (06:45)
[2018-03-13] MEDS ORDERED: Ketorolac INJ* 30 MG/ML 1 ML VIAL IV PUSH ONE (06:45)
[2018-03-13] MEDS ORDERED: Ondansetron INJ* 2 MG/ML VIAL IV ONE (06:46)
[2018-03-13] MEDS ORDERED: NS 0.9% 1000 ML* 1,000 ML IV ONE (06:46)
[2018-03-13 07:45] LABS: EGFR Non-African American 75.5 (>60)
[2018-03-13 07:45] LABS: Urine Appearance Cloudy; Urine Blood 1+ (Negative); Urine Color Yellow; Urine Ketones Negative (Negative); Urine Protein Negative (Negative); Urine Red Blood Cell Trace(0-2/hpf) (Absent); Urine Specific Gravity 1.023 (1.010-1.030); Urine Urobilinogen Negative (Negative); Urine White Blood Cell Absent (Absent)
[2018-03-13 07:47] LABS: ABS Basophils 0.1 10^3/ul (0-0.2); ABS Eosinophils 0.1 10^3/ul (0-0.6); ABS Lymphocytes 1.4 10^3/ul (1.0-4.8); ABS Monocytes 0.6 10^3/ul (0-0.8); ABS Nucleated RBC 0 10^3/ul; Eosinophil % 1.1 %; Hematocrit 26 % (35-47); Hemoglobin 7.8 g/dl (12.0-16.0); Lymphocyte % 11.2 %; Mean Corpuscular HGB Conc 30 g/dl (31-36); Mean Corpuscular Hemoglobin 22 pg (27-31); Mean Corpuscular Volume 74 fL (80-97); Mean Platelet Volume 7.4 fL (7.4-10.4); Nucleated Red Blood Cells % 0; Platelet Count 498 10^3/ul (150-450); Red Blood Count 3.54 10^6/ul (4.00-5.40); Red Cell Distribution Width 18 % (10.5-15); White Blood Count 12.2 10^3/ul (3.5-10.8)
[2018-03-13 09:47] VITALS: BP 131/65
== END 2018-03-13 09:43 | disposition home or self-care (01) ==
LOC: ED 06:28
DX: D64.9 Anemia, unspecified (principal); N13.30 Unspecified hydronephrosis; K57.30 Diverticulosis of large intestine without perforation or abscess without bleeding; Z87.891 Personal history of nicotine dependence
CPT/HCPCS: 36415; 74176; 80053; 81003; 81015; 83690; 84702; 85025; 96361; 96374; 96375; 99282; J1885; J2270; J2405

== ENCOUNTER 2019-05-28 16:40 | Emergency (ER) | payer OTHER ==
--- NOTE | 2019-05-28 17:16 | UC ---
Respiratory Complaint HPI - HPI Summary HPI Summary: 48 yo female presents with flu-like symptoms. She tells me that for the last 2 days she has had fatigue, cough, fever, and body aches. She did get the flu shot this year. She tells me that last week her daughter was dx'd with the flu. Pt has been taking tylenol/ibuprofen with mild relief. She is eating, drinking, and tolerating po well. Denies SOB, chest pain, abdominal pain, n/v, dysuria. - History of Current Complaint Stated Complaint: FEVER,COUGH Time Seen by Provider: 05/28/19 17:14 Hx Obtained From: Patient Hx Last Menstrual Period: 07/18/14 Onset/Duration: Sudden Onset Severity Initially: Mild Severity Currently: Mild Pain Intensity: 3 Pain Scale Used: 0-10 Numeric - Allergies/Home Medications Allergies/Adverse Reactions: Allergies Allergy/AdvReac Type Severity Reaction Status Date / Time No Known Allergies Allergy Verified 05/28/19 17:18 Home Medications: Home Medications Citalopram Hydrobromide [Citalopram HBr] 10 mg PO DAILY 03/13/18 [History Confirmed 05/28/19] medroxyPROGESTERone ACETATE* [DEPO-Provera] 150 mg IM MONTHLY 05/05/18 [History Confirmed 05/28/19] Oseltamivir CAP* [Tamiflu CAP*] 75 mg PO BID #10 cap 05/28/19 [Rx] PMH/Surg Hx/FS Hx/Imm Hx Psychological History: Anxiety, Depression - Surgical History Surgical History: Yes Surgery Procedure, Year, and [place] [facility] [place] - Family History Known Family History: Positive: Non-Contributory - Social History Occupation: Employed Full-time Lives: With Family Alcohol Use: None Substance Use Type: None Smoking Status (MU): Former Smoker When Did the Patient Quit Smoking/Using Tobacco: 21 years ago Review of Systems All Other Systems Reviewed And Are Negative: No Constitutional: Positive: Fever, Fatigue, Other - Body aches Skin: Positive: Negative Eyes: Positive: Negative ENT: Positive: Sore Throat Respiratory: Positive: Cough Cardiovascular: Positive: Negative Gastrointestinal: Positive: Negative Neurological/Mental Status: Positive: Negative Psychological: Positive: Negative Physical Exam - Summary Physical Exam Summary: GENERAL: NAD. WDWN. No pain distress. SKIN: No rashes, sores, lesions, or open wounds. HEENT: Head: AT/NC Eyes: EOM intact. Conjunctiva clear without inflammation or discharge. Ears: Hearing grossly normal. TMs intact, no bulging, erythema, or edema. Nose: Nasal mucosa pink and moist. NTTP maxillary and frontal sinus. Throat: Posterior oropharynx without exudates, erythema, or tonsillar enlargement. Uvula midline. NECK: Supple. Anterior cervical LAD nttp. CHEST: CTAB. No r/r/w. No accessory muscle use. Breathing comfortably and in no distress. CV: RRR. Pulses intact. Cap refill <2seconds NEURO: Alert. PSYCH: Age appropriate behavior. Triage Information Reviewed: Yes Vital Signs: Vital Signs: Temp Pulse Resp BP Pulse Ox 100.8 F 94 16 110/68 99 05/28/19 17:12 05/28/19 17:12 05/28/19 17:12 05/28/19 17:12 05/28/19 17:12 Laboratory Tests 05/28/19 17:26 Group A Strep Rapid Negative Vital Signs Reviewed: Yes Respiratory Course/Dx - Course Course Of Treatment: POC flu positive. POC strep negative. Rx for tamiflu - Differential Dx/Diagnosis Provider Diagnosis: Influenza Discharge ED - Sign-Out/Discharge Documenting (check all that apply): Patient Departure All imaging exams completed and their final reports reviewed: No Studies - Discharge Plan Condition: Stable Disposition: HOME Prescriptions: Oseltamivir CAP* [Tamiflu CAP*] 75 mg PO BID #10 cap Patient Education Materials: Influenza (ED) Referrals: Edilberto Yang MD [Primary Care Provider] - Additional Instructions: FLU TEST POSITIVE TODAY Most people with the flu recover within one to two weeks without treatment. However, serious complications of the flu can occur. Go to the ER immediately if you: -- You feel short of breath or have trouble breathing -- You have pain or pressure in your chest or stomach -- You have signs of being dehydrated, such as dizziness when standing or not passing urine -- You feel confused -- You cannot stop vomiting or you cannot drink enough fluids There are several groups of people who are at increased risk for flu complications. These include women, young children (<5 years of age and especially <2 years of age), people older than 65 years of age, and people with certain diseases such as chronic lung disease (such as asthma), heart disease, diabetes, immunosuppressing conditions (such as HIV infection or transplantation), and some other diseases. Treat symptoms Treating the symptoms of influenza can help you to feel better but will not make the flu go away faster. -- Rest until the flu is fully resolved, especially if the illness has been severe. -- Fluids Drink enough fluids so that you do not become dehydrated. One way to mechanical drafter if you are drinking enough is to look at the color of your urine. Normally, urine should be light yellow to nearly colorless. If you are drinking enough, you should pass urine every three to five hours. -- Acetaminophen (sample brand name: Tylenol) can relieve fever, headache, and muscle aches. Aspirin and medicines that include aspirin (eg, bismuth subsalicylate [sample brand name: Pepto-Bismol]) are not recommended for children under 18 because aspirin can lead to a serious disease called Kerri syndrome. -- Cough medicines are not usually helpful; cough usually resolves without treatment. We do not recommend cough or cold medicine for children under age 6 years. Antiviral treatment Antiviral medicines can be used to treat or prevent influenza. When used as a treatment, the medicine does not eliminate flu symptoms, although it can reduce the severity and duration of symptoms by about one day. Not every person with influenza needs an antiviral medicine, but some people do; the decision is based upon several factors. If you are severely ill and/or have risk factors for developing complications of influenza, you will need an antiviral agent. People who are only mildly ill and have no risk factors for complications usually do not need to be treated with antiviral medication. - Billing Disposition and Condition Condition: STABLE Disposition: Home
[2019-05-28 17:18] VITALS: BP 110/68
[2019-05-28 17:49] LABS: Influenza B Molecular POSITIVE (Negative)
== END 2019-05-28 17:43 | disposition home or self-care (01) ==
LOC: UCEAST 16:40
DX: J11.1 Influenza due to unidentified influenza virus with other respiratory manifestations (principal); F41.8 Other specified anxiety disorders; Z79.899 Other long term (current) drug therapy; Z87.891 Personal history of nicotine dependence
CPT/HCPCS: 87651; 99202; G0463